=== PATIENT | male | born 1960 | race Caucasian/White ===

== ENCOUNTER 2018-04-22 22:39 | Observation (INO) ==
[2018-04-22] MEDS ORDERED: Aspirin 325 MG TABLET PO ONE (23:08)
[2018-04-22] MEDS ORDERED: Nitroglycerin 0.4 MG TAB.SUBL SL PRN (23:08)
--- NOTE | 2018-04-22 23:14 | Emergency Department Note ---
Disposition Clinical Impression: Chest pain Qualifiers: Chest pain type: unspecified Qualified Code(s): R07.9 - Chest pain, unspecified Disposition: Admitted As Inpatient Condition: Good Forms: ED Satisfaction Letter Time of Disposition: 00:09 Chest Pain HPI - General Chief Complaint: ED Chest Pain Stated Complaint: "CP/SOB" Time Seen by Provider: 04/22/18 22:53 Source: patient Mode of arrival: ambulatory Limitations: no limitations Vital Signs Reviewed: Yes Nursing Notes Reviewed: Yes - History of Present Illness HPI Narrative: 57-year-old male tobacco user, hypertension, hyperlipidemia presents emergency department with chest pain. States the symptoms have been ongoing for the past month worse this morning. While driving his car he felt a sharp pressure like pain in the left side of his chest along the sternal border. Exertion does not make it worse Sometimes it radiates to the right. Some associated shortness of breath but nothing worsen usual. He does have a history of COPD. He is also been having issues with his hypertension currently on 2 antihypertensive medications which is primary care physician has recently increased dosage. He denies any cough fever or congestion. Throughout the night it got worse. He was able to obtain nitroglycerin from a friend and took it one hour ago which did alleviate some of his symptoms. He states if he had another one he would have taken it and felt like it would of taken it completely away. He is currently being evaluated at the [facility] in [place] where he had a recent stress test treadmill on Friday he is unaware of the results. He does not taken aspirin. Denies history of blood clots, recent long-distance travel, cancer, hemoptysis or hormone use. Pt complaint: chest pain Severity scale (1-10): 2 - Related Data Allergies Allergy/AdvReac Type Severity Reaction Status Date / Time No Known Allergies Allergy Verified 04/22/18 22:42 All systems ED: reviewed and negative except as stated. Review of Systems: As Per HPI Constitutional: Denies: fever, chills ENT ED: Denies: congestion Cardiovascular: Reports: chest pain. Denies: syncope Respiratory: Denies: cough, dyspnea Gastrointestinal: Denies: abdominal pain, nausea, vomiting Musculoskeletal: Denies: back pain Integumentary: Denies: rash, abrasion Neurological: Denies: headache Endocrine: Denies: fatigue Chest Pain PMH - Past Medical History Medical history: Reports: COPD, hyperlipidemia, hypertension Psychiatric history: Reports: anxiety, bipolar, depression - Social History Smoking Status: Current some day smoker Alcohol use: Reports: none Drug use: Reports: marijuana Physical Exam - General Limitations: no limitations General appearance: alert, in no apparent distress - Head Head exam: atraumatic, normocephalic, normal inspection - Eye Eye exam: Present: normal appearance, PERRL, EOMI - ENT ENT exam: normal exam, normal oropharynx, mucous membranes moist - Neck Neck exam: Present: normal inspection, full ROM, trachea midline - Chest Chest inspection: Present: normal inspection, symmetric chest wall rise - Respiratory Respiratory exam: Present: normal lung sounds bilaterally, other (Slightly diminished on the right greater than the left). Absent: respiratory distress, wheezes - Cardiovascular Cardiovascular exam: Present: normal rhythm, tachycardia, normal heart sounds. Absent: systolic murmur, diastolic murmur - Expanded Cardiovascular Exam Peripheral pulses: 2+: radial (R), radial (L) - Abdominal Exam Abdominal exam: Present: soft, Non-Tender. Absent: tenderness, distention, guarding, rebound, rigidity - Extremities Exam Extremities exam: Present: normal inspection, full ROM, normal capillary refill. Absent: tenderness, pedal edema, calf tenderness - Back Exam Back exam: Present: normal inspection, full ROM. Absent: tenderness - Neurological Exam Neurological exam: Present: alert, oriented X3 - Psychiatric Psychiatric exam: Present: normal affect, normal mood - Skin Skin exam: Present: warm, dry, intact, normal color. Absent: rash, cyanosis, diaphoresis Course Course Narrative: Patient presents with chest pain. No history of cardiac ischemic disease. He is currently being evaluated at the [facility] for for ACS including a stress tests performed a few days ago, unknown results. He took a nitro today which did help alleviate some of his symptoms. He is tachycardic but not hypoxic. His exam is otherwise unremarkable. Will continue with a chest pain workup and administer a full dose aspirin as well as nitro trial for his discomfort. Given his tachycardia will also obtain a D dimer as he is low risk. - Reevaluation(s) Reevaluation #1: After one nitroglycerin his pain is almost completely resolved down from a 8 of 10 to one of 10. Troponin less than 0.03. D dimer within normal limits. He is still persistently tachycardic will give him 1 L of fluids. His heart remains normal sinus rhythm. It is regular. Lungs are clear auscultation bilaterally. Patient will be admitted for chest pain to evaluate for acute coronary syndrome. Patient is in agreement with this plan. HEART score 4. Time: 00:08 - Consultations Consultation #1: Spoke with on-call hospitalist macario Faustin to admit for chest pain. No further orders at this time Time: 00:18 Vital Signs Temperature 97.8 F 04/22/18 22:43 Pulse Rate 139 04/22/18 22:43 Respiratory Rate 18 04/22/18 22:43 Blood Pressure 155/129 04/22/18 22:43 O2 Sat by Pulse Oximetry 96 04/22/18 22:43 Temperature 97.8 F 04/22/18 22:43 Pulse Rate 97 04/22/18 23:59 Respiratory Rate 18 04/22/18 22:43 Blood Pressure 150/109 04/22/18 23:59 O2 Sat by Pulse Oximetry 95 04/22/18 23:59 Oxygen Delivery Oxygen Delivery Room Air Chest Pain - MDM Narrative Medical decision making narrative: Patient was discussed with my attending physician who agrees with ED management and final disposition. They independently evaluated the patient. Please refer to their attestation to this encounter for additional information. This note was generated by [employer] voice recognition software and as a result grammatical or spelling errors may occur using this program. - Medical Records Medical records reviewed: Yes I reviewed the patient's medical records. - Lab Data Lab results reviewed: Yes I reviewed the patient's lab results. Result diagrams: 04/22/18 23:13 04/22/18 23:13 Lab Results 04/22/18 04/22/18 04/22/18 Range/Units 23:13 23:13 23:18 WBC 11.6 H (4.3-11.1) K/mcL RBC 5.30 (4.19-5.50) M/mcL Hgb 16.6 (12.9-16.9) g/dL Hct 49.0 (37.5-50.1) % MCV 92.5 (83.0-100.0) fL MCH 31.3 (28.0-33.3) pg MCHC 33.9 (31.6-35.5) g/dL RDW 13.8 (11.5-14.5) % Plt Count 229 (140-400) K/mcL MPV 10.3 (9.4-12.4) fL Immature Gran % 0.3 (0-4) % Seg Neutrophils % 57.9 % Lymphocytes % 27.2 % Monocytes % 9.7 % Eosinophils % 4.1 % Basophils % 0.8 % Neutrophils # 6.7 (1.6-8.9) K/mcL Lymphocytes # 3.2 (0.6-4.6) K/mcL Monocytes # 1.1 (0.0-1.3) K/mcL Eosinophils # 0.5 (0.0-0.6) K/mcL Basophils # 0.1 (0.0-0.2) K/mcL D-Dimer 374 (0-500) ng/mLFEU Sodium 135 L (136-145) mEq/L Potassium 3.8 (3.5-5.1) mEq/L Chloride 104 (98-107) mEq/L Carbon Dioxide 23 (23-29) mEq/L BUN 8 (6-20) mg/dL Creatinine 0.90 (0.70-1.30) mg/dL Est GFR ( Amer) > 60 (> 60) Est GFR (Non-Af Amer) > 60 (> 60) BUN/Creatinine Ratio 9 (6-26) Glucose 135 H (70-105) mg/dL Calculated Osmolality 280 (280-300) Calcium 9.6 (8.6-10.3) mg/dL Troponin I < 0.03 (< 0.04) ng/mL - Radiology Data Radiology results reviewed: Yes I reviewed the patient's radiology results. Chest X-Ray 04/22/18 22:58 IMPRESSION: No acute cardiopulmonary findings. D/ / Tio Mcnair / Tio Mcnair Interpreting Provider: Tio Mcnair - EKG Data EKG attestation: Yes I reviewed and interpreted this EKG. EKG results narrative: EKG performed 2254 sinus tachycardia 115 beats per minute, no ST elevation or depression, intervals appear within normal limits. No acute ischemic changes. Heart Score - Score History: Moderately Suspicious EKG: Normal Age: 45-65 Risk Factors: Equal/Greater than 3 risk factor or history of atherosclerotic disease Troponin: Less than normal limit HEART Score Total: 4
[2018-04-22 23:54] LABS: Basophils # 0.1 K/mcL (0.0-0.2); Basophils % 0.8 %; Eosinophils # 0.5 K/mcL (0.0-0.6); Eosinophils % 4.1 %; Hemoglobin 16.6 g/dL (12.9-16.9); Immature Granulocytes % 0.3 % (0-4); Lymphocytes # 3.2 K/mcL (0.6-4.6); Lymphocytes % 27.2 %; Mean Corpuscular HGB Conc 33.9 g/dL (31.6-35.5); Mean Corpuscular Hemoglobin 31.3 pg (28.0-33.3); Mean Corpuscular Volume 92.5 fL (83.0-100.0); Mean Platelet Volume 10.3 fL (9.4-12.4); Monocytes # 1.1 K/mcL (0.0-1.3); Monocytes % 9.7 %; Neutrophils # 6.7 K/mcL (1.6-8.9); Platelet Count 229 K/mcL (140-400); Red Cell Distribution Width 13.8 % (11.5-14.5); Segmented Neutrophils % 57.9 %
[2018-04-22 23:57] LABS: BUN/Creatinine Ratio 9 (6-26); Blood Urea Nitrogen 8 mg/dL (6-20); Calcium 9.6 mg/dL (8.6-10.3); Carbon Dioxide 23 mEq/L (23-29); Chloride 104 mEq/L (98-107); Glucose 135 mg/dL (70-105); Osmolality,Calculated 280 (280-300); Potassium 3.8 mEq/L (3.5-5.1); Sodium 135 mEq/L (136-145); eGFR For Non-African Americans > 60 (> 60)
[2018-04-22 23:58] LABS: Troponin I < 0.03 ng/mL (< 0.04)
[2018-04-23] MEDS ORDERED: 0.9 % Sodium Chloride 1,000 ML IVC ONE (00:13)
--- NOTE | 2018-04-23 00:37 | Emergency Department Note ---
Disposition Clinical Impression: Chest pain Qualifiers: Chest pain type: unspecified Qualified Code(s): R07.9 - Chest pain, unspecified Disposition: Admitted As Inpatient Condition: Good General Adult HPI - General Chief complaint: ED Chest Pain Stated complaint: "CP/SOB" Time Seen by Provider: 04/22/18 22:53 Source: patient Mode of arrival: ambulatory Limitations: no limitations Nursing Notes Reviewed: Yes Vital Signs Reviewed: Yes - History of Present Illness Pain Scale: 2 - Related Data Allergies Allergy/AdvReac Type Severity Reaction Status Date / Time No Known Allergies Allergy Verified 04/22/18 22:42 Constitutional: Denies: fever, chills ENT ED: Denies: congestion Cardiovascular: Reports: chest pain. Denies: syncope Respiratory: Denies: cough, dyspnea Gastrointestinal: Denies: abdominal pain, nausea, vomiting Musculoskeletal: Denies: back pain Integumentary: Denies: rash, abrasion Neurological: Denies: headache Endocrine: Denies: fatigue Past Medical History - Past Medical History Medical history: Reports: COPD, hyperlipidemia, hypertension Psychiatric history: Reports: anxiety, bipolar, depression - Social History Smoking Status: Current some day smoker Alcohol use: Reports: none Drug use: Reports: marijuana Physical Exam - General Limitations: no limitations General appearance: alert, in no apparent distress Course Vital Signs Temperature 97.8 F 04/22/18 22:43 Pulse Rate 139 04/22/18 22:43 Respiratory Rate 18 04/22/18 22:43 Blood Pressure 155/129 04/22/18 22:43 O2 Sat by Pulse Oximetry 96 04/22/18 22:43 Temperature 97.8 F 04/22/18 22:43 Pulse Rate 97 04/22/18 23:59 Respiratory Rate 18 04/22/18 22:43 Blood Pressure 150/109 04/22/18 23:59 O2 Sat by Pulse Oximetry 95 04/22/18 23:59 Oxygen Delivery Oxygen Delivery Room Air Medical Decision Making - Lab Data Lab results reviewed: Yes I reviewed the patient's lab results. Result diagrams: 04/22/18 23:13 04/22/18 23:13 Lab Results 04/22/18 04/22/18 04/22/18 Range/Units 23:13 23:13 23:18 WBC 11.6 H (4.3-11.1) K/mcL RBC 5.30 (4.19-5.50) M/mcL Hgb 16.6 (12.9-16.9) g/dL Hct 49.0 (37.5-50.1) % MCV 92.5 (83.0-100.0) fL MCH 31.3 (28.0-33.3) pg MCHC 33.9 (31.6-35.5) g/dL RDW 13.8 (11.5-14.5) % Plt Count 229 (140-400) K/mcL MPV 10.3 (9.4-12.4) fL Immature Gran % 0.3 (0-4) % Seg Neutrophils % 57.9 % Lymphocytes % 27.2 % Monocytes % 9.7 % Eosinophils % 4.1 % Basophils % 0.8 % Neutrophils # 6.7 (1.6-8.9) K/mcL Lymphocytes # 3.2 (0.6-4.6) K/mcL Monocytes # 1.1 (0.0-1.3) K/mcL Eosinophils # 0.5 (0.0-0.6) K/mcL Basophils # 0.1 (0.0-0.2) K/mcL D-Dimer 374 (0-500) ng/mLFEU Sodium 135 L (136-145) mEq/L Potassium 3.8 (3.5-5.1) mEq/L Chloride 104 (98-107) mEq/L Carbon Dioxide 23 (23-29) mEq/L BUN 8 (6-20) mg/dL Creatinine 0.90 (0.70-1.30) mg/dL Est GFR ( Amer) > 60 (> 60) Est GFR (Non-Af Amer) > 60 (> 60) BUN/Creatinine Ratio 9 (6-26) Glucose 135 H (70-105) mg/dL Calculated Osmolality 280 (280-300) Calcium 9.6 (8.6-10.3) mg/dL Troponin I < 0.03 (< 0.04) ng/mL - Radiology Data Radiology results reviewed: Yes I reviewed the patient's radiology results. Chest X-Ray 04/22/18 22:58 IMPRESSION: No acute cardiopulmonary findings. D/ / Tio Mcnair / Tio Mcnair Interpreting Provider: Tio Mcnair - EKG Data EKG #1 EKG attestation: Yes I reviewed and interpreted this EKG. EKG results narrative: EKG shows a sinus tachycardia with ventricular rate of 115. No acute ST segment elevation or depression. No ectopy. Attestation Statement - Attestation Attestation: I, Favio Miller MD, personally evaluated this patient and discussed their management with the resident physician. I reviewed the resident's note and agree with the documented findings, medical decision making, and plan of care. 57-year-old male presents to the emergency department with a complaint of some vague lower chest pain intermittently all day today. He states he has been having this pain intermittently for several months and it has been getting gradually worse. Pain seems to be brought on and worse with stress but not necessarily exertion. No prior history of OH or heart disease. He is followed at the [facility] and in fact just had a stress test to the [facility] last week but does not know the results. He presents today because the pain seems worse and more constant today. He took a friend's nitroglycerin which relieved the pain for about an hour but then the pain returned. He does admit to some shortness of breath associated with the pain. Also some mild intermittent diaphoresis and some nausea. No radiation of the pain. On examination patient is a well-developed well-nourished well-appearing male in no acute distress. He is alert and oriented 3. There is no cyanosis or diaphoresis. Chest is nontender to palpation. Breath sounds are decreased but clear and equal bilaterally with no rales or wheezes. Heart regular with a mild tachycardia. Abdomen is soft with normal bowel sounds. There is mild epigastric tenderness with no guarding or rebound tenderness. No CVA tenderness. No pedal edema. EKG shows a sinus tachycardia but otherwise normal. Chest x-ray negative. Labs reviewed and unremarkable. Troponin normal. Pain significantly improved here with nitroglycerin. The hospitalist, Dr. Cerda, was consulted and accepted admission of the patient.
--- NOTE | 2018-04-23 00:58 | Internal Med History&Physical ---
Date of Encounter: 04/23/18 Time of Encounter: 00:57 Internal Medicine - H&P: HPI Chief complaint: Chest pain Admitted From: Home Plans for Post Hospital Care: Home History of present illness: Deacon Woodward is a 57-year-old man with a history of hypertension and hyperlipidemia who is an active pack and a half a day smoker who has been assessed by his PCP for term attempt chest pains over the past few months and had a stress test done at the [facility] less than a week ago but he is unaware of the results stating that it was transferred over to his PCP and has not followed up yet. He comes in now stating that while he was driving to [place] he started having another chest pain episode that was more severe than previous episodes and lasting longer than usual for which he took one of his friends nitroglycerin pills which helped with the pain temporarily but then soon again returned. He also reports he was having accompanying dyspnea with the chest pain and intermittent moments of diaphoresis and nausea. He denies any characteristic radiation of the pain towards his upper extremities or jaw line. On arrival here he was clinically stable however he was found to be somewhat tachycardic. EKG done showed sinus tachycardia with no ST-T anomalies. He received loading dose of aspirin and another sublingual nitroglycerin which brought his pain down to 1/10. Initial troponin was negative. On my assessment he was lying comfortably in bed stating that his pain had subsided and he had no other complaints. Of note, he reports a past history of hepatitis C for which she has never been treated. Past Med Surg Social Fam HX - Past Medical History Medical history: COPD, hyperlipidemia, hypertension Psychiatric history: anxiety, bipolar, depression - Past Surgical History Additional surgical history: "part of my intestine removed" - Social History Smoking Status: Current some day smoker Alcohol use: none Drug use: marijuana Internal Medicine - H&P: Meds 3 Allergy/AdvReac Type Severity Reaction Status Date / Time No Known Allergies Allergy Verified 04/22/18 22:42 All Systems PM: A 10-system review of systems was performed and is negative for pertinent findings except as documented above in the HPI. - Constitutional Vitals: Temp Pulse Resp BP Pulse Ox 97.8 F 97 18 150/107 95 04/22/18 22:43 04/22/18 23:59 04/23/18 00:47 04/23/18 00:47 04/22/18 23:59 Exam: Vitals: Reviewed General: Well-developed white male sitting up in bed in no acute distress Skin: Warm and supple HEENT: Moist mucous membranes. No conjunctivae pallor. Neck: No lymphadenopathy. No JVD. No carotid bruits. No palpable thyroid. Chest: Normal thoracic expansion. Normal breath sounds. Clear to auscultation. Heart: Normal S1 & S2; rhythmic. No rubs or murmurs. Abdomen: Non-distended, soft and non-tender to palpation. No peritoneal reaction. Extremities: No clubbing, cyanosis or edema. No calf tenderness. Normal distal pulses. Neurological: Awake, alert and oriented to person, place and time. No focal deficits. Psych: Affect appropriate. Internal Med - H&P Results - Labs CBC & Chem 7: 04/22/18 23:13 04/22/18 23:13 - Assessment and plan (1) Chest pain Current Visit: Yes Status: Acute Assessment and plan: Characteristics of the patient's chest pain with increasing intensity, frequency and severity is concerning for unstable angina. He does have risk factors for coronary artery disease. No electrocardiographic signs of ACS at this time. We shall keep him on telemetry and obtain repeat EKG and troponin. Noting that he already had a stress test done for this very entity we shall request records from the [facility] and intervention can be planned according to those results. Should be placed on aspirin and statin therapy in the interim. Check lipid panel and A1c. Qualifiers: Chest pain type: unspecified Qualified Code(s): R07.9 - Chest pain, unspecified (2) Hypertension Current Visit: Yes Status: Acute Assessment and plan: Blood pressure values are currently adequate. We will resume oral antihypertensives once his home medications are confirmed. Qualifiers: Hypertension type: essential hypertension Qualified Code(s): I10 - Essential (primary) hypertension (3) Hyperlipidemia Current Visit: Yes Status: Acute Assessment and plan: Self-reported. We will check a lipid panel and resume statin therapy. Qualifiers: Hyperlipidemia type: unspecified Qualified Code(s): E78.5 - Hyperlipidemia , unspecified (4) Hepatitis C Current Visit: Yes Status: Chronic Assessment and plan: The patient will follow-up as an outpatient for treatment if disease still active. We will check LFTs here. Qualifiers: Hepatic coma status: without hepatic coma Qualified Code(s): B19.20 - Unspecified viral hepatitis C without hepatic coma (5) DVT prophylaxis Current Visit: Yes Status: Acute Assessment and plan: Subcutaneous heparin indicated. - Time Spent With Patient Total time spent is greater than 50% in coordination of care (as documented) at patient's floor/unit and/or counseling patient: Greater than 35 minutes
[2018-04-23] MEDS ORDERED: *HR* Heparin 5,000 UNIT/ML VIAL SQ SCH (06:00)
[2018-04-23 06:58] LABS: Basophils # 0.1 K/mcL (0.0-0.2); Basophils % 0.8 %; Eosinophils # 0.7 K/mcL (0.0-0.6); Eosinophils % 6.2 %; Hematocrit 46.5 % (37.5-50.1); Hemoglobin 15.8 g/dL (12.9-16.9); Immature Granulocytes % 0.4 % (0-4); Lymphocytes # 2.9 K/mcL (0.6-4.6); Lymphocytes % 25.7 %; Mean Corpuscular Hemoglobin 31.7 pg (28.0-33.3); Mean Corpuscular Volume 93.4 fL (83.0-100.0); Mean Platelet Volume 10.1 fL (9.4-12.4); Monocytes # 1.1 K/mcL (0.0-1.3); Neutrophils # 6.4 K/mcL (1.6-8.9); Platelet Count 207 K/mcL (140-400); Red Blood Count 4.98 M/mcL (4.19-5.50); Segmented Neutrophils % 56.9 %
[2018-04-23 07:14] LABS: Troponin I < 0.03 ng/mL (< 0.04)
[2018-04-23 07:15] LABS: Alanine Aminotransferase 18 Units/L (7-52); Albumin 3.8 g/dL (3.5-5.7); Albumin/Globulin Ratio 1.7 (1.1-2.2); Alkaline Phosphatase 77 Units/L (34-104); Aspartate Amino Transferase 18 Units/L (13-39); BUN/Creatinine Ratio 9 (6-26); Bilirubin,Direct 0.2 mg/dL (0.0-0.2); Bilirubin,Indirect 0.5 mg/dL (0.0-1.2); Bilirubin,Total 0.7 mg/dL (0.3-1.0); Blood Urea Nitrogen 8 mg/dL (6-20); Calcium 9.1 mg/dL (8.6-10.3); Carbon Dioxide 25 mEq/L (23-29); Chloride 106 mEq/L (98-107); Chol/HDL Ratio 2.6 (0-4.9); Cholesterol 88 mg/dL (< 200); Globulin 2.3 g/dL (2.4-3.5); Glucose 135 mg/dL (70-105); HDL Cholesterol 34 mg/dL (40-59); LDL Cholesterol,Calculated 36 mg/dL (0-99); Osmolality,Calculated 282 (280-300); Potassium 3.5 mEq/L (3.5-5.1); Sodium 136 mEq/L (136-145); Total Protein 6.1 g/dL (6.4-8.9); Triglycerides 91 mg/dL (< 150); eGFR For Non-African Americans > 60 (> 60)
[2018-04-23 08:40] LABS: Estimated Average Glucose 123 mg/dl; Hemoglobin A1C 5.9 %
[2018-04-23] MEDS ORDERED: Aspirin 81 MG TAB.CHEW PO SCH (09:00)
[2018-04-23 10:18] VITALS: BP 178/140
--- NOTE | 2018-04-23 10:32 | Discharge Summary ---
Date of Encounter: 04/23/18 Time of Encounter: 10:26 - Discharge Diagnosis (1) Chest pain Priority: Primary Status: Acute Qualifiers: Chest pain type: unspecified Qualified Code(s): R07.9 - Chest pain, unspecified (2) Hypertension Priority: Primary Status: Acute Qualifiers: Hypertension type: essential hypertension Qualified Code(s): I10 - Essential (primary) hypertension (3) Hyperlipidemia Priority: Secondary Status: Acute Qualifiers: Hyperlipidemia type: unspecified Qualified Code(s): E78.5 - Hyperlipidemia , unspecified (4) Hepatitis C Priority: Secondary Status: Chronic Qualifiers: Viral hepatitis chronicity: unspecified Hepatic coma status: without hepatic coma Qualified Code(s): B19.20 - Unspecified viral hepatitis C without hepatic coma Hospital course: Mr. Woodward is a 57 year old male with a history of hypertension and hyperlipidemia who is an active pack and a half a day smoker who has been assessed by his PCP for term attempt chest pains over the past few months and had a stress test done at the [facility] less than a week ago but he is unaware of the results stating that it was transferred over to his PCP and has not followed up yet. Presented to [facility] ED. He was driving to [place] he started having another chest pain episode that was more severe than previous episodes and lasting longer than usual for which he took one of his friends nitroglycerin pills which helped with the pain temporarily but then soon again returned. He also reports he was having accompanying dyspnea with the chest pain and intermittent moments of diaphoresis and nausea.EKG done showed sinus tachycardia with no ST-T anomalies. He received loading dose of aspirin and another sublingual nitroglycerin which brought his pain down to 1/10. Initial troponin was negative. He was admitted for further workup and evaluation. I did examine the patient at bedside after I retrieved him from ambulating in the hallway. Nursing had already notified me concerning elevated BP. I attempted to review home medications however patient could not recall names of medications. Awaiting records from [place] concerning stress test performed on Friday I reviewed treatment plan with the patient - He states that he feels fine and would like to leave, I explained that he if left he would leave against medical advice - he states that he has done that before - advised that he could possible suffer stroke NV or possible - patient verbalized understanding- approx one hour later nursing reports patient pulled out IV and left AMA Discharge discussed with: patient - Time Spent with Patient Total time spent providing and/or coordinating discharge services: - Discharge Medications Home Medications: Albuterol Sulfate [Proair Hfa] 2 puff IH QID PRN 04/23/18 [History] Atorvastatin [Lipitor] 40 mg PO HS 04/23/18 [History] Buspirone HCl [Buspar] 5 mg PO BID 04/23/18 [History] Cholecalciferol (D-3) [Vitamin D] 2,000 unit PO DAILY 04/23/18 [History] Cyclobenzaprine [Flexeril] 10 mg PO TID PRN 04/23/18 [History] Escitalopram [Lexapro] 20 mg PO DAILY 04/23/18 [History] Lisinopril [Zestril] 20 mg PO BID 04/23/18 [History] Meloxicam [Mobic] 15 mg PO DAILY 04/23/18 [History] Metoprolol [Lopressor] 50 mg PO BID 04/23/18 [History] Quetiapine Fumarate [Seroquel] 50 mg PO HS 04/23/18 [History] Tiotropium Gibson [Spiriva Respimat] 2 puff IH DAILY 04/23/18 [History] Allergies/Adverse Reactions: 3 Allergy/AdvReac Type Severity Reaction Status Date / Time No Known Allergies Allergy Verified 04/22/18 22:42 Date of admission: 04/23/18 00:28 Primary care physician: [facility] Discharging clinician: Angle Rojas - Constitutional Vitals: Temp Pulse Resp BP Pulse Ox 97.6 F 120 20 178/140 97 04/23/18 06:47 04/23/18 06:47 04/23/18 06:47 04/23/18 10:18 04/23/18 06:47 General appearance: Present: A&O X 3 Exam: see above - Head Head exam: Present: atraumatic, normocephalic - Eye Eye exam: Present: PERRL, conjuntiva pink, sclera anicteric Pupils: Present: PERRL - Neck Neck exam general surgery: Present: supple, trachea midline. Absent: lymphadenopathy - Respiratory Respiratory exam: Present: CTAB. Absent: accessory muscle use, rales, rhonchi, wheezes - Cardiovascular Cardiovascular exam: Present: RRR, +S1, +S2. Absent: diastolic murmur, gallop, rubs, systolic murmur - GI/Abdominal GI/Abdominal exam: Present: normal bowel sounds, soft, no peritoneal signs. Absent: distended, tenderness - Extremities Exam Extremities exam: Present: warm, radial pulses palpable and symmetrical. Absent : calf tenderness, cyanotic, pedal edema - Neurological Exam Neurological exam: Present: CN II-XII intact, oriented X3, no focal deficits. Absent: pronater drift, facial droop, speech deficit - Skin Skin exam: Present: dry, intact - Patient Status Disposition: Left Against Medical Advice Condition: Good - Discharge Instructions Follow [facility] With: [facility] [Primary Care Provider] -
--- NOTE | 2018-04-26 20:52 | Electrocardiograph Report ---
[address] [address] Test Date: 2018-04-22 Pat Name: Deacon Woodward Department: [id number] Room: 3B64 Gender: M Director Staffing: : 1960 Requested By: Jamir Hernandez Order Number: [id number] Reading MD: Albaro Nunez Measurements Intervals [place] Rate: 115 P: 7 NH: 145 QRS: -12 QRSD: 79 T: 51 QT: 316 QTc: 437 Interpretive Statements Sinus tachycardia Electronically Signed On 04-26-2018 20:50:59 EDT by Albaro Nunez
--- NOTE | 2018-04-26 21:11 | Electrocardiograph Report ---
[place] [id number] Test Date: 2018-04-23 Pat Name: Deacon Woodward Department: 113 Room: 3B Gender: M Bell Clerk: : [id number] Requested By: Angle Rojas Order Number: [id number] Reading MD: Albaro Nunez Measurements Intervals [place] Rate: 84 P: 17 [place]: 159 QRS: -14 QRSD: 94 T: 20 QT: 372 QTc: 413 Interpretive Statements SINUS RHYTHM Electronically Signed On 04-26-2018 21:09:40 EDT by Albaro Nunez
== END 2018-04-23 10:20 | disposition left against medical advice (07) ==
LOC: 3BNU 22:39 → EMEROOARM 22:39 → 3BNU 04-23 00:49
PROVIDERS: ADMIT Internal Medicine; ATTEND Internal Medicine